=== PATIENT | male | born 1985 | race Two or more races ===

== ENCOUNTER 2023-10-16 17:55 | Emergency (ER) | payer SELFPAY ==
[~2023-10-16] VITALS: Ht 152.4 cm; Wt 67.0 kg
[2023-10-16 18:21] VITALS: BP 130/78; PULSE 82; RESP 18; TEMP 99.2; O2SAT 98
[2023-10-16] MEDS: HYDROcodone-ACET 10/325MG TAB PO ONE (20:25)
[2023-10-16] MEDS: KETOROLAC TROMETH 60MG/2ML VIAL IM ONE (20:26)
[2023-10-16] MEDS: BENZOCAINE (DENTAL) 20 % SPRAY 60ML MT ONE (20:28)
[2023-10-16] MEDS ORDERED: AUG875T PO (20:38)
[2023-10-16] MEDS ORDERED: IBUP-1455 PO (20:38)
[2023-10-16] MEDS ORDERED: BENZOCAINE (DENTAL) 20 % SPRAY 60ML MT ONE (20:45)
== END 2023-10-16 20:49 | disposition home or self-care (01) ==
LOC: ER 17:55
DX: K04.7 Periapical abscess without sinus (principal)
CPT/HCPCS: 96372; 99283; J1885